=== PATIENT | female | born 1970 | race Two or more races ===

== ENCOUNTER 2018-12-31 07:28 | Outpatient (CLI) | payer OTHER ==
[~2018-12-31 07:28] MED LIST: DEXILANT30 MG PO
== END 2018-12-31 09:03 | disposition home or self-care (01) ==
LOC: LAB 07:28
DX: I10 Essential (primary) hypertension (principal)

== ENCOUNTER 2019-01-13 08:12 | Day surgery (SDC) | payer OTHER | END 2019-01-13 15:23 | disposition home or self-care (01) | LOC: CIR.AMB 08:12 | DX: N84.0 Polyp of corpus uteri (principal) ==

== ENCOUNTER 2025-08-11 15:06 | Outpatient (CLI) | payer OTHER | END 2025-08-11 15:18 | disposition home or self-care (01) | LOC: RAD 15:06 | PROVIDERS: ATTEND Obstetrics & Gynecology | DX: R05.9 Cough, unspecified (principal); R07.9 Chest pain, unspecified ==

== ENCOUNTER 2025-08-31 06:00 | Day surgery (SDC) | payer OTHER ==
[~2025-08-31 06:00] MED LIST changes: +NEXIUM 24HR20 MG PO; +PREMPRO 0.3 MG1 EACH PO
[2025-08-31] MEDS ORDERED: POVIDONE-IODINE 118 ML BOTT TOP ONE ×2 (07:31→09:19)
[2025-08-31] MEDS ORDERED: CHLORHEXIDINE GLUCONATE 120 ML BOTTLE TOP ONE (09:24)
[2025-08-31] MEDS ORDERED: PROMETHAZINE HCL 50 MG/ML AMPUL IM ONE (10:30)
== END 2025-08-31 13:15 | disposition home or self-care (01) ==
LOC: CIR.AMB 06:00
PROVIDERS: ATTEND Obstetrics & Gynecology
DX: N84.0 Polyp of corpus uteri (principal); N84.1 Polyp of cervix uteri; Z88.0 Allergy status to penicillin; Z88.6 Allergy status to analgesic agent; Z88.2 Allergy status to sulfonamides